=== PATIENT | female | born 1995 | race Caucasian/White ===

== ENCOUNTER 2019-02-12 23:05 | Inpatient (IN) | payer MEDICAID ==
[2019-02-13] MEDS ORDERED: LIDOCAINE 1% (MPF) 30 ML INJ INJ (01:00)
[2019-02-13] MEDS ORDERED: CARBOPROST 250 MCG INJ IM ×2 (01:00→14:30)
[2019-02-13] MEDS ORDERED: OXYTOCIN 30 UNITS/LR 500 ML IV ×2 (01:00→14:30)
[2019-02-13] MEDS ORDERED: BUTORPHANOL 2 MG INJ IV (01:00)
[2019-02-13 03:21] LABS: ADD MAN DIFF? NO
[2019-02-13 03:42] LABS: INR 0.89; PROTIME 12.1 Sec (11.9-14.9); PT RATIO 0.9
[2019-02-13 03:43] LABS: PARTIAL THROMBOPLASTIN TIME 27.6 Sec (23.0-35.0)
[2019-02-13 03:47] LABS: GLUCOSE 94 mg/dl (70-220)
[2019-02-13 03:50] LABS: BASOPHIL # 0.1 10^3/ul (0.0-0.1); BASOPHILS % 0.6 % (0.0-2.0); EOSINOPHILS # 0.2 10^3/ul (0.0-0.5); HEMATOCRIT 37.9 % (37.0-47.0); HEMOGLOBIN 12.8 g/dl (12.0-16.0); LYMPHOCYTES # 1.9 10^3/ul (0.8-2.9); LYMPHOCYTES % 20.6 % (15.0-51.0); MEAN CORPUSCULAR HEMOGLOBIN 30.4 pg (29.0-33.0); MEAN CORPUSCULAR HGB CONC 33.8 g/dl (32.0-37.0); MEAN PLATELET VOLUME 9.3 fl (7.4-10.4); MONOCYTE # 0.6 10^3/ul (0.3-0.9); MONOCYTES % 6.3 % (0.0-11.0); NEUTROPHIL # 6.3 10^3/ul (1.6-7.5); NEUTROPHILS % 69.1 % (39.0-77.0); PLATELET COUNT 226 10^3/UL (140-415); RED BLOOD COUNT 4.21 10^6/ul (4.20-5.40); RED CELL DISTRIBUTION WIDTH 12.4 % (11.5-14.5)
[2019-02-13 03:50] LABS: WHITE BLOOD COUNT 9.1 10^3/ul (4.8-10.8)
[2019-02-13] MEDS: LACTATED RINGER'S 1,000 ML IV ×3 (04:00→16:35)
[2019-02-13 04:19] LABS: HEPATITIS B SURFACE ANTIGEN NEGATIVE (NEGATIVE)
[2019-02-13] MEDS: OXYTOCIN 30 UNITS/LR 500 ML IV ×3 (11:30→18:37)
[2019-02-13] MEDS: METHYLERGONOVINE 0.2 MG INJ IM (13:45)
[2019-02-13] MEDS: MISOPROSTOL 200 MCG TAB PR ×2 (13:46→13:49)
[2019-02-13] MEDS: LACTATED RINGER'S 1,000 ML IV* ×2 (14:22→23:51)
[2019-02-13] MEDS ORDERED: ONDANSETRON 4 MG INJ IV (14:30)
[2019-02-13] MEDS ORDERED: DIPHENHYDRAMINE 50 MG INJ IV (14:30)
[2019-02-13] MEDS ORDERED: BENZOCAINE 20% 56 ML SPRAY TOP (14:30)
[2019-02-13] MEDS ORDERED: ONDANSETRON 4 MG TAB PO (14:30)
[2019-02-13] MEDS ORDERED: SENNA/DOCUSATE NA (8.6MG/50MG) TAB PO (14:30)
[2019-02-13] MEDS ORDERED: MISOPROSTOL 200 MCG TAB PR (14:30)
[2019-02-13] MEDS ORDERED: DIPHENHYDRAMINE 25 MG CAP PO (14:30)
[2019-02-13] MEDS ORDERED: HYDROCODONE/APAP (5/325) TAB PO (14:30)
[2019-02-13] MEDS ORDERED: NA PHOSPHATE/BIPHOS 133 ML ENEMA PR (14:30)
[2019-02-13] MEDS ORDERED: DIBUCAINE 1% 30 GM OINT TOP (14:30)
[2019-02-13] MEDS ORDERED: MAGNESIUM HYDROXIDE 30ML CUP PO (14:30)
[2019-02-13] MEDS: HYDROCODONE/APAP (5/325) TAB PO (15:44)
[2019-02-13] MEDS: CEFAZOLIN 2 GM/50 ML (PMX) 50 ML IVPB (15:46)
[2019-02-13 15:58] LABS: RAPID PLASMA REAGIN NONREACTIVE (NR)
[2019-02-13] MEDS: IBUPROFEN 600 MG TAB PO ×2 (18:19→23:51)
[2019-02-13] MEDS: WITCH HAZEL/GLYCERIN PAD PR (18:36)
[2019-02-13] MEDS: LANOLIN HPA 1 PKT TOP (18:37)
[2019-02-13] MEDS: PIPER-TAZO 3.375 GM IV (PMX) 100 ML IVPB (20:25)
[2019-02-13] MEDS: SENNA/DOCUSATE NA (8.6MG/50MG) TAB PO (20:26)
[2019-02-14] MEDS: LACTATED RINGER'S 1,000 ML IV ×3 (01:19→16:35)
[2019-02-14] MEDS: PIPER-TAZO 3.375 GM IV (PMX) 100 ML IVPB ×4 (02:18→20:19)
[2019-02-14] MEDS: LACTATED RINGER'S 1,000 ML IV* ×3 (06:22→22:22)
[2019-02-14] MEDS: IBUPROFEN 600 MG TAB PO ×3 (06:23→17:54)
[2019-02-14 06:52] LABS: ADD MAN DIFF? NO
[2019-02-14 06:59] LABS: WHITE BLOOD COUNT 10.6 10^3/ul (4.8-10.8)
[2019-02-14 06:59] LABS: BASOPHIL # 0.1 10^3/ul (0.0-0.1); BASOPHILS % 0.5 % (0.0-2.0); EOSINOPHILS # 0.1 10^3/ul (0.0-0.5); EOSINOPHILS % 0.9 % (0.0-7.0); HEMATOCRIT 27.9 % (37.0-47.0); HEMOGLOBIN 9.6 g/dl (12.0-16.0); LYMPHOCYTES # 1.7 10^3/ul (0.8-2.9); MEAN CORPUSCULAR HEMOGLOBIN 31.1 pg (29.0-33.0); MEAN CORPUSCULAR HGB CONC 34.4 g/dl (32.0-37.0); MEAN CORPUSCULAR VOLUME 90.3 fl (82.0-101.0); MEAN PLATELET VOLUME 9.2 fl (7.4-10.4); MONOCYTE # 0.8 10^3/ul (0.3-0.9); MONOCYTES % 7.1 % (0.0-11.0); NEUTROPHIL # 7.9 10^3/ul (1.6-7.5); NEUTROPHILS % 74.2 % (39.0-77.0); PLATELET COUNT 214 10^3/UL (140-415); RED BLOOD COUNT 3.09 10^6/ul (4.20-5.40); RED CELL DISTRIBUTION WIDTH 12.5 % (11.5-14.5)
[2019-02-14] MEDS: SENNA/DOCUSATE NA (8.6MG/50MG) TAB PO ×2 (12:11→20:19)
[2019-02-15] MEDS: IBUPROFEN 600 MG TAB PO ×3 (00:27→11:14)
[2019-02-15] MEDS: LACTATED RINGER'S 1,000 ML IV (00:35)
[2019-02-15] MEDS: PIPER-TAZO 3.375 GM IV (PMX) 100 ML IVPB ×2 (02:34→08:25)
[2019-02-15] MEDS: LACTATED RINGER'S 1,000 ML IV* (06:22)
[2019-02-15] MEDS ORDERED: MEASLES,MUMPS,RUBELLA VACCINE INJ SC* (09:00)
[2019-02-15] MEDS ORDERED: DIPHTH/TET/ACEL PERTUSS (ADULT) 0.5 ML VIAL IM* (09:00)
[2019-02-15] MEDS ORDERED: VARICELLA VACCINE LIVE/PF 1,350 UNIT/0.5 ML ML SC* (09:00)
[2019-02-15] MEDS: SENNA/DOCUSATE NA (8.6MG/50MG) TAB PO (10:03)
== END 2019-02-15 14:50 | disposition home or self-care (01) | DRG 806 ==
LOC: OBT 23:05 → L-D 02-13 00:24 → OBT 02-13 00:30 → L-D 02-13 00:30 → PP1 02-13 16:38
PROVIDERS: Specialist
PROC: 10E0XZZ Delivery of Products of Conception, External Approach (ICD-10-PCS; principal; 2019-02-13)
PROC: 0KQM0ZZ Repair Perineum Muscle, Open Approach (ICD-10-PCS; 2019-02-13)
PROC: 4A1HXCZ Monitoring of Products of Conception, Cardiac Rate, External Approach (ICD-10-PCS; 2019-02-13)
DX: O70.1 Second degree perineal laceration during delivery (principal); O72.1 Other immediate postpartum hemorrhage; Z37.0 Single live birth; Z3A.39 39 weeks gestation of pregnancy
CPT/HCPCS: 76815; 82947; 85025; 85610; 85730; 86592; 86850; 86900; 86901; 87340; 90716; 99464